=== PATIENT | female | born 1965 | race Two or more races ===

== ENCOUNTER 2023-03-05 10:13 | Emergency (ER) | payer BC, OTHER ==
[~2023-03-05] VITALS: Ht 160 cm; Wt 65.0 kg
[2023-03-05 15:00] VITALS: BP 152/83
== END 2023-03-05 16:36 | disposition left against medical advice (07) ==
LOC: ER 10:13
DX: S93.601A Unspecified sprain of right foot, initial encounter (principal); X58.XXXA Exposure to other specified factors, initial encounter; Y93.89 Activity, other specified; Y92.89 Other specified places as the place of occurrence of the external cause; Y99.8 Other external cause status
CPT/HCPCS: 73630